=== PATIENT | male | born 1975 | race Two or more races ===

== ENCOUNTER 2017-02-15 00:47 | Emergency (ER) | payer MEDICAID, OTHER ==
[~2017-02-15] VITALS: Ht 182.9 cm; Wt 83.9 kg
[2017-02-15] MEDS ORDERED: HYDROcodone-ACET 10/325MG TAB PO ONE (05:45)
[2017-02-15] MEDS ORDERED: HYDROcodone-ACET 5/325MG TAB PO ONE (08:00)
[2017-02-15] MEDS ORDERED: TETANUS-DIPTH-ACEL PERTUSSIS 0.5ML SYRG IM ONE (08:00)
[2017-02-15] MEDS ORDERED: BACITRACIN TOP OINT 1 UD PKG TOP ONE (09:30)
[2017-02-15] MEDS ORDERED: LIDOCAINE 2%HCL (LOCAL ANESTH.) INJ 20ML MDV ID ONE (09:30)
[2017-02-15 11:35] VITALS: BP 125/65
== END 2017-02-15 12:36 | disposition home or self-care (01) ==
LOC: ER 00:58
DX: S01.82XA Laceration with foreign body of other part of head, initial encounter (principal); M48.02 Spinal stenosis, cervical region; Z23 Encounter for immunization; W19.XXXA Unspecified fall, initial encounter; Y93.89 Activity, other specified; Y99.8 Other external cause status; Y92.89 Other specified places as the place of occurrence of the external cause
CPT/HCPCS: 12011; 70450; 70486; 72125; 90471; 90715

== ENCOUNTER 2017-02-26 07:36 | Emergency (ER) | payer MEDICAID ==
[~2017-02-26] VITALS: Ht 182.9 cm; Wt 83.9 kg
[2017-02-26 08:02] VITALS: BP 136/82
== END 2017-02-26 09:33 | disposition home or self-care (01) ==
LOC: ER 07:36
DX: S01.111D Laceration without foreign body of right eyelid and periocular area, subsequent encounter (principal)

== ENCOUNTER 2020-03-11 10:23 | Emergency (ER) | payer MEDICAID ==
[~2020-03-11] VITALS: Ht 182.9 cm; Wt 113.4 kg
[2020-03-11 10:33] VITALS: BP 132/87
[2020-03-11] MEDS ORDERED: LIDOCAINE 1% HCL (LOCAL ANESTH.) INJ 20ML MDV IJ ONE (10:45)
== END 2020-03-11 11:21 | disposition home or self-care (01) ==
LOC: ER 10:23
DX: S01.511A Laceration without foreign body of lip, initial encounter (principal); W22.8XXA Striking against or struck by other objects, initial encounter; Y93.89 Activity, other specified; Y92.89 Other specified places as the place of occurrence of the external cause; Y99.8 Other external cause status
CPT/HCPCS: 12013; 99283; J2001